=== PATIENT | female | born 1975 | race Caucasian/White ===

== ENCOUNTER 2016-11-15 13:22 | Emergency (ER) | payer MEDICAID ==
[~2016-11-15] VITALS: Ht 167.6 cm; Wt 60.0 kg
[2016-11-15 13:23] VITALS: BP 115/70; PULSE 52; RESP 16; TEMP 97.3; O2SAT 100
[2016-11-15] MEDS ORDERED: TRIA.1%T TOPICAL (16:47)
[2016-11-15] MEDS ORDERED: MEDR4PAK PO (16:47)
--- NOTE | 2016-11-15 16:48 | PD ---
HPI Chief Complaint: Skin Problem Time Seen by Provider: 16:42 Travel History International Travel<30 days: No Contact w/Intl Traveler<30days: No Traveled to known affect area: No History of Present Illness HPI Patient is a 41-year-old female presenting to the emergency department for evaluation of a rash to her buttocks and posterior thighs. Patient states very itchy, it's been ongoing for approximately one month. She denies any new lotions, soaps, detergents. She does work out in a gym. She denies any fever, chills, nausea, vomiting, wheezing, shortness of breath. Patient reports that she is bulimic and is concerned that all of the starch and gluten she eats and then purges would cause this problem. PFSH Past Medical History Gastrointestinal Disorders: Yes (bulimia) Social History Alcohol Use: No Tobacco Use: No Substance Use: No Allergies-Medications (Allergen,Severity, Reaction): Coded Allergies: No Known Allergies (Unverified , 11/15/16) Review of Systems Except as stated in HPI: all other systems reviewed are Neg Skin: Positive Rash, Positive Itching, Positive Dryness Physical Exam Narrative GENERAL: Well-nourished, well-developed patient. SKIN: Warm and dry. Dry scaly skin and Excoriations noted to buttocks, hives to posterior upper thighs, HEAD: Normocephalic. EYES: No scleral icterus. No injection or drainage. NECK: Supple, trachea midline. No JVD or lymphadenopathy. CARDIOVASCULAR: Regular rate and rhythm without murmurs, gallops, or rubs. RESPIRATORY: Breath sounds equal bilaterally. No accessory muscle use. GASTROINTESTINAL: Abdomen soft, non-tender, nondistended. MUSCULOSKELETAL: No cyanosis, or edema. BACK: Nontender without obvious deformity. No CVA tenderness. Data Data Last Documented VS Vital Signs Date Time Temp Pulse Resp B/P Pulse Ox O2 Delivery O2 Flow Rate FiO2 11/15/16 13:23 97.3 52 16 115/70 100 Room Air MDM Medical Decision Making Medical Screen Exam Complete: Yes Emergency Medical Condition: Yes Interpretation(s) Vital Signs Date Time Temp Pulse Resp B/P Pulse Ox O2 Delivery O2 Flow Rate FiO2 11/15/16 13:23 97.3 52 16 115/70 100 Room Air Differential Diagnosis Contact dermatitis versus folliculitis versus impetigo versus eczema versus malnutrition versus other Narrative Course Patient is a 41-year-old female presenting to the emergency department for evaluation of one month of rash to her buttocks and legs. Patient has been using apple cider vinegar and alcohol to the affected areas trying to clear it up on her own. It appears that the skin is very dry and irritated. Patient was advised to avoid applying those agents any further. Physical examination appears most consistent with eczema/contact dermatitis. Patient will be given prescription for oral and topical steroid cream. She was advised to follow-up with a gas attendant. Additionally patient was encouraged to return to emergency department for any new or worsening symptoms. Patient verbalized understanding of these instructions. Patient stable for discharge. Diagnosis Primary Impression: Contact dermatitis and eczema Referrals: [employer] Patient Instructions: Contact Dermatitis (ED), Eczema (ED), General Instructions Additional Instructions: Use medications as directed Maintain adequate fluid intake Avoid using apple cider vinegar or alcohol to affected areas Obtain [id number] Vanicream and use as directed Return to emergency department for any new or worsening symptoms You may also use [id number] Benadryl as needed and as directed for itching Med/Other Pt SpecificInfo: Prescription(s) given Scripts Triamcinolone Topical 0.1% Cream1 Applic TOPICAL BID #60 GM Ref 0 Prov:Edwina Garcia 11/15/16 Methylprednisolone Dosepak (Medrol Dosepak)4 Mg Dspk4 Mg PO DIRECTED #1 DSPK Ref 0 Per Pharmacist direction Prov:Edwina Garcia 11/15/16 Disposition: 01 DISCHARGE HOME Condition: Stable Edwina Garcia Nov 15, 2016 16:48
== END 2016-11-15 17:24 | disposition home or self-care (01) ==
LOC: EDBD → NEPB 13:22
DX: L25.9 Unspecified contact dermatitis, unspecified cause (principal)
CPT/HCPCS: 99283